=== PATIENT | male | born 1975 | race Caucasian/White ===

== ENCOUNTER 2020-07-13 05:30 | Observation (INO) | payer OTHER ==
[~2020-07-13] VITALS: Ht 182.9 cm; Wt 96.6 kg
[~2020-07-13 05:30] MED LIST: FLUOXETINE DR90 MG PO; IBUPROFEN400 MG PO; VYVANSE50 M1 PO
[2020-07-13] MEDS ORDERED: ANTIBIOTIC PO (06:00)
[2020-07-13] MEDS ORDERED: LIDOCAINE 1% W/EPINEPHRINE 20 ML VIAL ONE (06:41)
--- OUTSIDE RECORDS SUMMARY | 2020-07-13 09:12 | XMS REPORT | Continuity of Care Document ---
Author Author [facility] t Organization [facility] Address [address] [place] [address] Phone Unavailable Care Team Providers Care Crop And Soil Scientist Name Role Phone TRAVIS MARKS M.D. Attphys Unavailable VICENTE GUEVARA P.A. Attphys Unavailable Prudencio Almendarez Attphys Luis A Razo Attphys Margarito Monahan Attphys Prudencio Almendarez Admphys Problems Condition Name Condition Details Condition Category Status Onset Date Resolution Date Last Treatment Date Treating Clinician Comments Source ABNORMAL EKG, LEUKOCYTOSIS ABN ORMAL EKG, LEUKOCYTOSIS Active 10/30/2017 [facility] Diagnosis Active 2017-10-30 00:00:00 2017-11-01 14:16:00 [facility] MENIGITIS MENI GITIS Active 10/30/2017 [facility] Diagnosis Active 2017-10-30 00:00:00 2017-10-30 23:11:00 [facility] [place] POST ACCIDENT SCREENS POST ACCIDENT SCREENS Active 01/26/2016 [facility] Diagnosis Active 2016-01-26 22:00:00 2016-02-11 15:18:00 [facility] History of attention deficit disorder History of attention d eficit disorder Problem Resolved [facility] Ulcers of genital organ in male Ulcers of genital organ in male Pro blem Active [facility] Malaise and fatigue Malaise and fatigue Problem Active [facility]ache Head[facility] Screening for STD (sexually transmitted disease) Scree jocelyn for STD (sexually transmitted disease) Problem Active [facility] Lymphadenitis, acute Lymphadenitis, acute Problem Active [facility] Genital herpes simplex type 1 infection Genital herpes simpl ex type 1 infection Problem Active [facility] Dyslipidemia Dyslipidemia Problem Active [facility] RLQ abdominal tenderness RLQ abdominal tenderness Problem Active [facility] Constipation, acute Constipation, acute Problem Active [facility] Acute low back pain Acute low back pain Problem Active [facility] Strain of lumbar region, initial encounter Strain of l umbar region, initial encounter Problem Active [facility] Blood pressure elevated without history of HTN Blood p ressure elevated without history of HTN Problem Active [facility] Abnormal transaminases Abnormal transaminases Problem Active [facility] ADHD (attention deficit hyperactivity disorder), 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), inattentive type Problem Active [facility] Depressive disorder Depressive disorder Problem Active [facility] Abnormal electrocardiogram [ECG] [EKG] Abnormal electrocardiogram [ECG] [EKG] 11/05/2017 [facility] Problem 2017-11-05 02:49:08 [place] Bacterial ear infection (disorder) Bacterial ear infection (disorder) Resolved Problem 11/05/2017 [facility] Problem Resolved 2017-11-05 02:49:08 Mem orial Germán Abnormal ECG (finding) Abno rmal ECG (finding) Active Problem 11/05/2017 [facility] Problem Active 2017-11-05 02:49:08 [place] Influenza with pharyngitis (disorder) Influenza with pharyngitis (disorder) Active Problem 11/05/2017 [facility] Problem Active 2017-11-05 02:49:08 Saad rial Germán ABNORMAL ELECTROCARDIOGRAM [ECG] [EKG] ABNORMAL ELECTROCARDIOGRAM [ECG] [EKG] Active [facility] Diagnosis Active 2017-11-01 14:16:00 [facility] [place] ELEVATED WHITE BLOOD CELL COUNT, UNSPECI ELEVATED WHITE BLOOD CELL COUNT, UNSPECI Active [facility] Diagnosis Active 2017-11-01 14:16:00 [place] Allergies, Adverse Reactions, Alerts This patient has no known allergies or adverse reactions. Social History Social Habit Start Date Stop Date Quantity Comments Source Social History 2017-10-31 06:34:33 2017-10-31 06:34:33 [place] Smoking Status Start Date Stop Date Source Ex-smoker (finding) [facility] Medications Ordered Medication Name Filled Medication Name Start Date Stop Da te Current Medication? Ordering Clinician Indication Dosage Frequency Signature (SIG) Comments Components Source predniSONE 20 MG Oral Tablet predniSONE 20 MG Oral Tablet 2018-06-13 5 00:00:00 Yes VICENTE BENITEZR P.A. 2 PO QD x 3 days, then 1 PO QD x 4 days [facility] valACYclovir HCl - 1 GM Oral Tablet valACYclovir HCl - 1 GM Oral Tablet 2018-04-19 00:00:00 Yes VICENTE BENITEZR P.A. 1 Q12H TAKE 1 TABLET Every twelve hours x 7 days, then 1 PO QD [facility] cefdinir 300 MG Oral Capsule [Omnicef] 2017-11-02 17:29:00 Yes 300 mg = 1 cap, PO, Q12H, X 5 day, # 10 cap, 0 Refill(s), Pharmacy: [facility]/pharmacy #[id number] [facility] Azithromycin 2017-10-31 18:00:00 No Notes: (Same As: Zithromax IV) [facility] Docusate 2017-10-31 15:00:00 No Notes: (Same as: Colace) (Do Not Crush) [facility] Rocephin 2017-10-31 07:00:00 No Notes: (Same As: Rocephin). Use with 100 mL NS and infuse over 30 min MEDICATION WASTE Product Size: 2000 mg Product Wasted: ___ mg [facility] Saline Flush 0.9% 2017-10-31 06:16:00 No Notes: Same as: BD Posiflush Sterile [facility] NS + KCL 20mEq/L 1000ml (Premix) 1,000 mL 2017-10-31 06:16:00 No Notes: PREMIX IV - Do Not Alter WASTE: F/P - Sink; E - Municipal Trash Bin [facility] Morphine 2017-10-31 06:16:00 No Not es: (Same as:MORPhine Sulfate) [facility] Acetaminophen 2017-10-31 06:16:00 No Notes: Do not exceed 4 gm/day. (Same as: Tylenol) [facility] Ondansetron 2017-10-31 06:16:00 No Notes: (Same as: Zofran) MEDICATION WASTE Product Size: 4 mg Product Wasted: ___ mg [facility] Ibuprofen 2017-10-31 04:50:00 No Notes: (Same as: Motrin) "Do Not Crush" Take with food. [facility] [place] Acetaminophen 2017-10-30 23:29:00 No 975 mg, Route: PO, Drug form: TAB, ONCE, Dosing Weight 103.182, kg, Start date: 10/30/17 17:29:00 CLERK ANALYST, Stop date: 10/30/17 17:29:00 CLERK ANALYST [facility] harvey Calcium Chloride 0.0014 MEQ/ML / Potassi um Chloride 0.004 MEQ/ML / Sodium Chloride 0.103 MEQ/ML / Sodium Lactate 0.028 MEQ/ML Injectable Solution 2017-10-30 23:29:00 No 3,000 mL, 2000 ml/hr, Infuse Over: 1.5 hr, Route: IV, 3,000, Drug form: INJ, ONCE, Priority: STAT, Dosing Weight 103.182 kg, Start date: 10/30/17 17:29:00 CLERK ANALYST, Stop date: 10/30/17 17:29:00 CLERK ANALYST [facility] Saline Flush 0.9% 2017-10-30 23:29:00 No Notes: Same as: BD Posiflush Sterile [facility] [place] Promethazine HCl and Codeine Phosphate oral syrup 2017-10-23 20:27:00 Yes 5 ml, PO, Q4H, PRN for cough, X 10 day, # 180 m L, 0 Refill(s) [facility] Oseltamivir 75 MG Oral Capsule [Tamiflu] 2017-10-23 20:27:00 Yes 75 mg, PO, Q12H, X 5 day, # 10 cap, 0 Refill(s), Pharmacy: [facility]acy #[id number] Promethazine DM oral syrup 2017-10-19 18:16:00 Yes 5 mL, PO, Q6H, PRN for cough, X 6 day, # 120 mL, 0 Refill(s) [place] amoxicillin 875 mg oral tablet 2017-10-19 18:16:00 Yes 875 mg = 1 tab, PO, BID, X 10 day, # 20 tab, 0 Refill(s) [facility] [place] Fluoxetine 20 MG Oral Capsule [Prozac] 2017-10-18 18:48:00 Yes 20 mg = 1 cap, PO, Daily, # 30 cap, 0 Refill(s) [facility] [place] lisdexamfetamine dimesylate 50 MG Oral Capsule [Vyvanse] 2017-10-18 18:48:00 Yes 50 mg = 1 cap, PO, QAM, # 30 cap , 0 Refill(s) [place] Vyvanse 50 MG Oral Capsule Vyvanse 50 MG Oral Capsule 2017-04-17 00:0 0:00 Yes TRAVIS MARKS M.D. Take one cap daily. [facility] FLUoxetine HCl - 20 MG Oral Capsule FLUoxetine HCl - 20 MG O ral Capsule 2017-04-17 00:00:00 Yes TRAVIS MARKS M.D. Take on e cap daily. [facility] Vital Signs Vital Name Observation Time Observation Value Comments Source Systolic blood pressure 2019-12-16 17:34:00 115 mm[Hg] Loca tion: RUE; Position: Sitting [facility] Diastolic blood pressure 2019-12-16 17:34:00 77 mm[Hg] Loc ation: RUE; Position: Sitting [facility] Body height 2019-12-16 17:34:00 72 [in_us] [facility] Weight 2019-12-16 17:34:00 236.5 [lb_av] [facility] Body mass index (BMI) [Ratio] 2019-12-16 17:34:00 32.08 kg/m2 [facility] Body temperature 2019-12-16 17:34:00 97.7 [degF] Method: Tympanic [facility] Heart Rate 2019-12-16 17:34:00 74 /min Quality: Normal [facility] Respiratory rate 2019-12-16 17:34:00 18 /min Quality: Normal [facility] O2 SAT 2019-12-16 17:34:00 98 % Source: RA [facility] BP Systolic 2019-08-20 13:39:00 129 mm[Hg] Location: STEVEN Positi on: Sitting [facility] BP Diastolic 2019-08-20 13:39:00 81 mm[Hg] Location: STEVEN Positi on: Sitting [facility] Height 2019-08-20 13:39:00 72 [in_us] [facility] Weight 2019-08-20 13:39:00 228.125 [lb_av] [facility] Body Mass Index Calculated 2019-08-20 13:39:00 30.94 kg/m2 [facility] Heart Rate 2019-08-20 13:39:00 97 /min [facility] O2 SAT 2019-08-20 13:39:00 99 % [facility] BP Systolic 2019-01-15 17:40:00 131 mm[Hg] Location: RUE; Positi on: Sitting [facility] BP Diastolic 2019-01-15 17:40:00 90 mm[Hg] Location: RUE; Positi on: Sitting [facility] Weight 2019-01-15 17:40:00 104.32 kg [facility] Body Mass Index Calculated 2019-01-15 17:40:00 31.19 kg/m2 [facility] Heart Rate 2019-01-15 17:40:00 78 /min [facility] O2 SAT 2019-01-15 17:40:00 98 % [facility] BP Systolic 2018-07-09 13:31:00 145 mm[Hg] [facility] BP Diastolic 2018-07-09 13:31:00 91 mm[Hg] [facility] Height 2018-07-09 13:31:00 72 [in_us] [facility] Weight 2018-07-09 13:31:00 225.5 [lb_av] [facility] Body Mass Index Calculated 2018-07-09 13:31:00 30.58 kg/m2 [facility] Temperature 2018-07-09 13:31:00 97.2 [degF] [facility] Heart Rate 2018-07-09 13:31:00 94 /min [facility] Respiration Rate 2018-07-09 13:31:00 18 /min [facility] O2 SAT 2018-07-09 13:31:00 95 % [facility] BP Systolic 2018-06-27 10:40:00 127 mm[Hg] Location: LUE; Positi on: Sitting [facility] BP Diastolic 2018-06-27 10:40:00 92 mm[Hg] Location: LUE; Positi on: Sitting [facility] Height 2018-06-27 10:40:00 72 [in_us] [facility] Weight 2018-06-27 10:40:00 221.375 [lb_av] [facility] Body Mass Index Calculated 2018-06-27 10:40:00 30.02 kg/m2 [facility] Temperature 2018-06-27 10:40:00 98.2 [degF] Method: Temporal [facility] Respiration Rate 2018-06-27 10:40:00 16 /min [facility] Heart Rate 2018-06-27 10:40:00 67 /min [facility] BP Systolic 2018-05-04 10:06:00 118 mm[Hg] Location: LUIS ENRIQUE; Positi on: Sitting [facility] BP Diastolic 2018-05-04 10:06:00 85 mm[Hg] Location: LUIS ENRIQUE; Positi on: Sitting [facility] Height 2018-05-04 10:06:00 72 [in_us] [facility] Weight 2018-05-04 10:06:00 219.5 [lb_av] [facility] Body Mass Index Calculated 2018-05-04 10:06:00 29.77 kg/m2 [facility] Temperature 2018-05-04 10:06:00 97.6 [degF] Method: Temporal [facility] Heart Rate 2018-05-04 10:06:00 83 /min [facility] Respiration Rate 2018-05-04 10:06:00 16 /min [facility] BP Systolic 2018-04-19 12:15:00 118 mm[Hg] Location: LUIS ENRIQUE; Positi on: Sitting [facility] BP Diastolic 2018-04-19 12:15:00 86 mm[Hg] Location: LUIS ENRIQUE; Positi on: Sitting [facility] Height 2018-04-19 12:15:00 72 [in_us] [facility] Weight 2018-04-19 12:15:00 222 [lb_av] [facility] Body Mass Index Calculated 2018-04-19 12:15:00 30.11 kg/m2 [facility] Temperature 2018-04-19 12:15:00 96.5 [degF] Method: Temporal [facility] Respiration Rate 2018-04-19 12:15:00 16 /min [facility] Heart Rate 2018-04-19 12:15:00 85 /min [facility] BP Systolic 2018-02-13 10:22:00 125 mm[Hg] Location: STEVEN Positi on: Sitting [facility] BP Diastolic 2018-02-13 10:22:00 89 mm[Hg] Location: LUIS ENRIQUE; Positi on: Sitting [facility] Height 2018-02-13 10:22:00 72 [in_us] [facility] Weight 2018-02-13 10:22:00 223.375 [lb_av] [facility] Body Mass Index Calculated 2018-02-13 10:22:00 30.3 kg/m2 [facility] Temperature 2018-02-13 10:22:00 98.3 [degF] Method: Tympanic [facility] Heart Rate 2018-02-13 10:22:00 91 /min [facility] O2 SAT 2018-02-13 10:22:00 98 % Source: RA [facility] Systolic (mm Hg) 2017-11-02 17:43:00 [facility] [place] Diastolic (mm Hg) 2017-11-02 17:43:00 [facility] [place] Respitory Rate 2017-11-02 17:43:00 Memori al [facility] Temperature Oral (F) 2017-11-02 17:43:00 98.5 F [facility] Heart Rate 2017-11-02 17:43:00 [facility] Heart Rate 2017-11-02 14:09:00 [facility] Temperature Oral (F) 2017-11-02 14:09:00 97.8 F [facility] Systolic (mm Hg) 2017-11-02 14:09:00 Saad rial [facility] Diastolic (mm Hg) 2017-11-02 14:09:00 [facility] [place] Respitory Rate 2017-11-02 14:09:00 Memori al [facility] Systolic (mm Hg) 2017-11-02 10:09:00 Saad rial [place] Diastolic (mm Hg) 2017-11-02 10:09:00 [facility] [place] Respitory Rate 2017-11-02 10:09:00 [facility] [place] Temperature Oral (F) 2017-11-02 10:09:00 98.2 F [facility] Heart Rate 2017-11-02 10:09:00 [facility] BMI Calculated 2017-10-31 07:31:00 [facility] Weight 2017-10-31 07:31:00 [facility] [place] Height 2017-10-31 07:31:00 187.96 cm [facility] Weight 2017-10-30 23:24:00 [facility] BMI Calculated 2017-10-30 23:24:00 Memori al [facility] Height 2017-10-30 23:24:00 182.88 cm [facility] Heart Rate 2017-10-30 22:43:00 [facility] Systolic (mm Hg) 2017-10-30 22:43:00 Saad rial [place] Diastolic (mm Hg) 2017-10-30 22:43:00 Mem orial [facility] Temperature Oral (F) 2017-10-30 22:43:00 99.9 F [facility] BMI Calculated 2017-10-23 20:12:00 [facility] [place] Height 2017-10-23 20:12:00 182.88 cm [facility] Weight 2017-10-23 20:12:00 [facility] Systolic (mm Hg) 2017-10-23 20:12:00 Saad [facility] [place] Diastolic (mm Hg) 2017-10-23 20:12:00 Mem orial [facility] Heart Rate 2017-10-23 20:12:00 [facility] Respitory Rate 2017-10-23 20:12:00 Memori al [facility] BP Systolic 2017-10-23 11:16:00 115 mm[Hg] [facility] BP Diastolic 2017-10-23 11:16:00 80 mm[Hg] [facility] Weight 2017-10-23 11:16:00 221.25 [lb_av] [facility] Body Mass Index Calculated 2017-10-23 11:16:00 30.01 kg/m2 [facility] Temperature 2017-10-23 11:16:00 98.6 [degF] [facility] Heart Rate 2017-10-23 11:16:00 87 /min [facility] Respiration Rate 2017-10-23 11:16:00 18 /min [facility] O2 SAT 2017-10-23 11:16:00 98 % [facility] Temperature Oral (F) 2017-10-19 17:41:00 98.9 F [facility] Heart Rate 2017-10-19 17:41:00 [facility] Systolic (mm Hg) 2017-10-19 17:41:00 Saad carmina Germ[facility] Diastolic (mm Hg) 2017-10-19 17:41:00 Mem orial [place] Procedures Procedure Date / Time Performed Performing Clinician Sourc e [[facility]] HEPATIC FUNCTION PANEL 2018-04-23 00:00:00 [facility] [QH] HERPES SIMPLEX VIRUS ANTIBODY IGM WITH REFLEX TO TITER 2018-04-19 00:00:00 [facility] [Q] HSV 1/2 IGG, HERPESELECT TYPE SPECIFIC AB (REFL) 2018-04-19 00:00:00 [facility] [Q] CHLAMYDIA/N. GONORRHOEAE DNA, SDA 2018-04-19 00:00:00 [facility] [QH] HIV AB, HIV 1/2, EIA, WITH REFLEXES 2018-04-19 00:00:00 [facility] [QL] RPR (DX) W/REFL TITER AND CONFIRMATORY TESTING 2018-04-19 0 0:00:00 [facility] [QL] HEPATITIS PANEL 2018-04-19 00:00:00 [facility] [QL] CBC (INCLUDES DIFF/PLT) 2018-04-19 00:00:00 [facility] [[facility]] CMP W/EGFR 2018-04-19 00:00:00 [facility] [QL] LIPID PANEL 2018-04-19 00:00:00 [facility] [QL] TSH, 3RD GENERATION W/REFLEX TO FT4 2018-04-19 00:00:00 [facility] [QL] URINALYSIS, COMPLETE W/REFLEX TO CULTURE 2018-04-19 00:00: 00 [facility] [QL] CULTURE, HERPES SIMPLEX VIRUS WITH TYPING 2018-04-19 00:00: 00 [facility] History of Back surgery [facility] Cervical spinal fusion [facility] Plan of Care Planned Activity Planned Date Details Comments Source Diagnostic Test Pending 2018-05-23 00:00:00 [[facility]] HEPATIC FU NCTION PANEL [code = [[facility]] HEPATIC FUNCTION PANEL] [facility] Encounters Start Date/Time End Date/Time Encounter Type Admission Type Attendi [facility] Care Department Encounter ID Source 2020-05-12 18:30:2020-05-12 18:30:00 Appointment; TRAVIS MARKS M.D. MENDEZ, RUBEN, M.D. [facility] [id number] [facility] 2020-05-12 18:30:00 2020-05-12 18:30:00 Appointment; TRAVIS MARKS M.D. MENDEZ, RUBEN, M.D. UTP [facility] [id number] [facility] 2020-04-20 18:30:00 2020-04-20 18:30:00 Appointment; TRAVIS MARKS M.D. MENDEZ, RUBEN, M.D. [facility] [id number] [facility] 2020-04-20 18:30:00 2020-04-20 18:30:00 Appointment; TRAVIS MARKS M.D. MENDEZ, RUBEN, M.D. [facility] [id number] [facility] 2019-12-16 18:00:00 2019-12-16 18:00:00 Appointment; TRAVIS MARKS M.D. MENDEZ, RUBEN, M.D. [facility] Psychiatry Outpatient Clinic - [facility] [id number] [facility] 2019-08-20 13:30:00 2019-08-20 13:30:00 Appointment; TRAVIS MARKS M.D. MENDEZ, RUBEN, M.D. [facility] Psych[facility]ry Outpatient [facility] - [facility] [id number] [facility] 2019-05-21 18:00:00 2019-05-21 18:00:00 Appointment; TRAVIS MARKS M.D. MENDEZ, RUBEN, M.D. [facility] [id number] [facility] 2019-01-15 17:30:00 2019-01-15 17:30:00 Appointment; TRAVIS MARKS M.D. MENDEZ, RUBEN, M.D. [facility] [address] [id number] [facility] 2018-07-09 13:30:00 2018-07-09 13:30:00 Appointment; TRAVIS MARKS M.D. MENDEZ, RUBEN, M.D. [facility] Psychiatry [id number] [facility] 2018-06-27 11:00:00 2018-06-27 11:00:00 Appointment; KLEVER GUEVARA P.A. SPOONER, JOSEPH, P.A. [facility] [address] [id number] [facility] 2018-06-18 10:30:00 2018-06-18 10:30:00 Appointment; TRAVIS MARKS M.D. MENDEZ, RUBEN, M.D. [facility] [id number] [facility] 2018-05-04 10:15:00 2018-05-04 10:15:00 Appointment; KLEVER GUEVARA P.A. SPOONER, JOSEPH, P.A. [facility] [address] [id number] [facility] 2018-04-19 12:30:00 2018-04-19 12:30:00 Appointment; KLEVER GUEVARA P.A. SPOONER, JOSEPH, P.A. [facility] [id number] [facility] 2018-02-13 10:30:00 2018-02-13 10:30:00 Appointment; TRAVIS MARKS M.D. MENDEZ, RUBEN, M.D. [facility] Psychiatry [id number] [facility] 2017-10-30 17:19:00 2017-11-02 13:00:00 Outpatient Abby Almendarez [facility] [id number] 2017-10-30 16:00:00 2017-10-30 23:59:59 Outpatient Luis A Razo [facility] [id number] 2017-10-23 14:00:00 2017-10-23 23:59:59 Outpatient Wilfred Gonzalez [facility] [id number] 2017-10-23 11:00:00 2017-10-23 11:00:00 Appointment; TRAVIS MARKS M.D. MENDEZ, RUBEN, M.D. [facility] Psychiatry [id number] [facility] 2017-10-19 11:00:00 2017-10-19 23:59:59 Outpatient Wilfred Gonzalez [facility] [id number] 2017-10-18 12:00:00 2017-10-18 23:59:59 Outpatient Luis A Razo [facility] [id number] 2017-07-10 16:30:00 2017-07-10 16:30:00 Appointment; TRAVIS MARKS M.D. MENDEZ, RUBEN, M.D. [facility] UTP [id number] [facility] 2017-04-17 10:30:00 2017-04-17 10:30:00 Appointment; TRAVIS MARKS M.D. MENDEZ, RUBEN, M.D. [facility] UTP [id number] [facility] Results Test Description Test Time Test Comments Results Result Comments Source [[facility]] LIPID PANEL 2018-04-19 13:40:00 Test Item CHOLESTEROL, TOTAL; Normal (test code = 2093-3) 160 mg/dl <200 N HDL CHOLESTEROL; Below Low Threshold (test code = 2085-9) 38 mg/dl >40 TRIGLYCERIDES; Above High Threshold (test code = 2571-8) 373 mg/dl <150 LDL-CHOLESTEROL; Normal (test code = 48050-0) 77 {MG/DL JAMIE} N Reference range: <100 Desirable range <100 mg/dL for primary prevention; <70 mg/dL for patients with CHD or diabetic patients with > or = 2 CHD risk factors. LDL-C is now calculated using the Julio-Aggarwal calculation, which is a validated novel method providing better accuracy than the Friedewald equation in the estimation of LDL-C. Julio SS et al. DESHAWN. 2013;310(19): 4803-6809 (http ://education.Beat.no.com/faq/TWJ609) CHOL/HDLC RATIO (test code = CHOL/HDLC RATIO) 4.2 {CALC} <5.0 N NON HDL CHOLESTEROL (test code = NON HDL CHOLESTEROL) 122 {MG/DL C AL} <130 N For patients with diabetes plus 1 major ASCVD risk factor, treating to a non-HDL-C goal of <100 mg/dL (LDL-C of <70 mg/dL) is considered a therapeutic option. [facility]] HEPATITIS [id number] 13:40:00* Test Item Value Reference Range Interpretation Comments HEPATITIS A AB, TOTAL (test code = HEPATITIS A AB, TOTAL) REACTI VE NON-REACTIVE A HEPATITIS B SURFACE ANTIBODY QL; Normal (test code = 11633-6 ) NON-REACTIVE NON-REACTIVE N HEPATITIS B SURFACE ANTIGEN; Normal (test code = 5195-3) NON -REACTIVE NON-REACTIVE N HEPATITIS B CORE AB TOTAL; Normal (test code = 89541-7) NON- REACTIVE NON-REACTIVE N HEPATITIS C ANTIBODY; Normal (test code = 44119-2) NON-REACTIVE NON -REACTIVE N SIGNAL TO CUT-OFF (test code = SIGNAL TO CUT-OFF) 0.01 <1.0 0 N [facility][Q] HIV-1/2 Antigen and Antibodies, Fourth Generation, with [id number] 13:40:00* Test Item Value Reference Range Interpretation Comments HIV AG/AB, 4TH GEN; Normal (test code = 70972-9) NON-REACTIVE NON-R EACTIVE N HIV-1 antigen and HIV-1/HIV-2 antibodies were notdetected. There is no laboratory evidence of HIVinfection. PLEASE NOTE: This information has been disclosed toyou from records whose confidentiality may beprotected by state law. If your state requires suchprotection, then the state law prohibits you frommaking any further disclosure of the informationwithout the specific written consent of the personto whom it pertains, or as otherwise permitted by law.A general authorization for the release of medical orother information is NOT sufficient for this purpose. For additional information please refer t [email or web address](This link is being provided for informational/educational purposes only.) The performance of this assay has not been clinicallyvalidated in patients less than 2 years old. [facility]] CMP W/[id number] 13:40:00* Test Item Value Reference Range Interpretation Comments GLUCOSE; Normal (test code = 1547-9) 84 mg/dl 65-139 N Non-fasting reference interval UREA NITROGEN (BUN) (test code = UREA NITROGEN (BUN)) 10 mg/dl 7-25 N CREATININE (test code = CREATININE) 0.79 mg/dl 0.60-1.35 N eGFR NON- (test code = eGFR NON-KAIT N TONGAN) 111 {ML/MIN/1.7} > OR = 60 N eGFR (test code = eGFR ) 12 8 {ML/MIN/1.7} > OR = 60 N BUN/CREATININE RATIO (test code = BUN/CREATININE RATIO) NOT APPLICA BLE 6-22 SODIUM (test code = SODIUM) 139 mmol/L 135-146 N POTASSIUM (test code = POTASSIUM) 4.3 mmol/L 3.5-5.3 N CHLORIDE (test code = CHLORIDE) 103 mmol/L 98-110 N CARBON DIOXIDE (test code = CARBON DIOXIDE) 25 mmol/L 20-31 N CALCIUM (test code = CALCIUM) 8.9 mg/dl 8.6-10.3 N PROTEIN, TOTAL (test code = PROTEIN, TOTAL) 7.2 g/dl 6.1-8.1 N ALBUMIN (test code = ALBUMIN) 4.1 g/dl 3.6-5.1 N GLOBULIN (test code = GLOBULIN) 3.1 {G/DL CALC} 1.9-3.7 N ALBUMIN/GLOBULIN RATIO (test code = ALBUMIN/GLOBULIN RATIO) 1.3 {CALC} 1.0-2.5 N BILIRUBIN, TOTAL; Normal (test code = 02402-3) 0.7 mg/dl 0.2-1.2 N ALKALINE PHSPHATASE (test code = ALKALINE PHSPHATASE) 105 u/l 40-115 N AST; Above High Threshold (test code = 1916-6) 46 u/l 10-40 ALT; Above High Threshold (test code = 1742-6) 100 u/l 9-46 [facility]] URINALYSIS, COMPLETE W/REFLEX TO CULTURE 2018-04-19 13:40:00* Test Item Value Reference Range Interpretation Comments COLOR; Normal (test code = 5778-6) DARK YELLOW YELLOW N APPEARANCE (test code = APPEARANCE) CLEAR CLEAR N SPECIFIC GRAVITY; Normal (test code = 2965-2) 1.025 1.001-1. 035 N PH; Normal (test code = 2756-5) 6.0 5.0-8.0 N GLUCOSE; Normal (test code = 1547-9) NEGATIVE NEGATIVE N BILIRUBIN; Normal (test code = 05643-5) NEGATIVE NEGATIVE N KETONES; Normal (test code = 39555-5) NEGATIVE NEGATIVE N OCCULT BLOOD; Normal (test code = 03973-2) NEGATIVE NEGATIVE N PROTEIN; Normal (test code = 03346-6) NEGATIVE NEGATIVE N NITRITE (test code = NITRITE) NEGATIVE NEGATIVE N LEUKOCYTE ESTERASE (test code = LEUKOCYTE ESTERASE) NEGATIVE NE GATIVE N WBC; Normal (test code = 6690-2) NONE SEEN < OR = 5 N RBC; Normal (test code = 789-8) NONE SEEN < OR = 2 N SQUAMOUS EPITHELIAL CELLS; Normal (test code = 35004-3) NONE SEEN < OR = 5 N BACTERIA; Normal (test code = 630-4) NONE SEEN NONE SEEN N HYALINE CAST; Normal (test code = 10595-0) NONE SEEN NONE SEEN N [facility]] CBC (INCLUDES DIFF/PLT)2018-04-19 13:40:00* Test Item Value Reference Range Interpretation Comments WHITE BLOOD CELL COUNT (test code = WHITE BLOOD CELL COUNT) 6.3 {Thousand/u} 3.8-10.8 N RED BLOOD CELL COUNT (test code = RED BLOOD CELL COUNT) 4.68 {Million/uL} 4.20-5.80 N HEMOGLOBIN; Normal (test code = 36458-9) 14.3 g/dl 13.2-17.1 N HEMATOCRIT; Normal (test code = 4544-3) 41.0 % 38.5-50.0 N MCV; Normal (test code = 787-2) 87.6 fL 80.0-100.0 N MCHC; Normal (test code = 96111-3) 34.9 g/dl 32.0-36.0 N RDW; Normal (test code = 788-0) 12.4 % 11.0-15.0 N PLATELET COUNT; Normal (test code = 777-3) 165 {Thousand/u} 140-400 N MPV; Above High Threshold (test code = 90574-0) 13.6 fL 7.5-12 .5 ABSOLUTE NEUTROPHILS (test code = ABSOLUTE NEUTROPHILS) 3131 {cells/uL} 4732-9427 N ABSOLUTE LYMPHOCYTES (test code = ABSOLUTE LYMPHOCYTES) 1978 {cells/uL} 850-3900 N ABSOLUTE MONOCYTES (test code = ABSOLUTE MONOCYTES) 1140 {cells/uL} 200-950 ABSOLUTE EOSINOPHILS (test code = ABSOLUTE EOSINOPHILS) 32 {cells/u L} 15-500 N ABSOLUTE BASOPHILS (test code = ABSOLUTE BASOPHILS) 19 {cells/uL} 0 -200 N NEUTROPHILS (test code = NEUTROPHILS) 49.7 % N LYMPHOCYTES (test code = LYMPHOCYTES) 31.4 % N MONOCYTES; Normal (test code = 86647-4) 18.1 % N EOSINOPHILS; Normal (test code = 88312-9) 0.5 % N BASOPHILS; Normal (test code = 76840-0) 0.3 % N [facility][Q] HSV 1/2 IGG, HERPESELECT TYPE SPECIFIC AB (REFL)2018-04-19 13:40:00* Test Item Value Reference Range Interpretation Comments HSV 1 IGG TYPE SPECIFIC AB (test code = HSV 1 IGG TYPE SPECIFIC AB) <0.90 N HSV 2 IGG TYPE SPECIFIC AB (test code = HSV 2 IGG TYPE SPECIFIC AB) <0.90 N Index Interpretation ----- <0.90 Negative 0.90-1.09 Equivocal >1.09 Positive This assay utilizes recombinant type-specific antigensto differentiate HSV-1 from HSV-2 infections. Apositive result cannot distinguish between recent andpast infection. If recent HSV infection is suspectedbut the results are negative or equivocal, the assayshould be repeated in 4-6 weeks. The performancecharacteristics of the assay have not been establishedfor pediatric populations, immunocompromised patients,or screening. [facility][Q] REFLEXIVE URINE [id number] 13:40:00* Test Item Value Reference Range Interpretation Comments REFLEXIVE URINE CULTURE (test code = REFLEXIVE URINE C ULTURE) NO CULTURE INDICATED [facility]] TSH, 3RD GENERATION W/REFLEX TO FT4 2018-04-19 13:40:00* Test Item Value Reference Range Interpretation Comments TSH, 3RD GENERATION W/REFLEX TO FT4 (wilbur t code = TSH, 3RD GENERATION W/REFLEX TO FT4) 2.48 {MIU/L} 0.40-4.50 N [facility][Q] HSV 1/2 AB (IGM), IFA W/RFL TO [id number] 13:40:00* Test Item Value Reference Range Interpretation Comments HSV 1 IGM SCREEN (test code = HSV 1 IGM SCREEN) NEGATIVE HSV 2 IGM SCREEN (test code = HSV 2 IGM SCREEN) NEGATIVE REFERENCE RANGE: NEGATIVE The IFA procedure for measuring IgM antibodies to HSV 1and HSV 2 detects both type-common and type- specificHSV antibodies. Thus, IgM reactivity to both HSV 1and HSV 2 may represent crossreactive HSV antibodiesrather than exposure to both HSV 1 and HSV 2. This test was developed and its analytical performancecharacteristics have been determined by [facility]. It has not been cleared or approvedby FDA. This assay has been validated pursuant to theCLIA regulations and is used for clinical purposes. [facility][Q] CHLAMYDIA/N. GONORRHOEAE RNA, [id number] 13:40:00* Test Item Value Reference Range Interpretation Comments CHLAMYDIA TRACHOMATIS RNA, TMA; Normal (test code = 45564-5) NOT DETECTED NOT DETECTED N NIESSERIA GONORRHOEAE RNA,M TMA; Normal (test code = 00604-2 ) NOT DETECTED NOT DETECTED N [facility][QL] RPR (DX) W/REFL TITER AND CONFIRMATORY [id number] 13:40:00* Test Item Value Reference Range Interpretation Comments RPR (DX) W/REFL TITER AND CONFIRMATORY T ESTING (test code = RPR (DX) W/REFL TITER AND CONFIRMATORY TESTING) NON-REACTIVE NON-REACTIVE N [facility][QL] CULTURE, HERPES SIMPLEX VIRUS WITH TYPING 2018-04-19 12:43:00* Test Item Value Reference Range Interpretation Comments HSV CULTURE (test code = HSV CULTURE) See Comment A HERPES SIMPLEX VIRUS CULTURE W/RFL TO TYPING MICRO NUMBER: [id number] TEST STATUS: FINAL SPECIMEN SOURCE: NOT GIVEN SPECIMEN QUALITY: ADEQUATE HSV CULTURE: Isolated HSV TYPE 2: Not isolated HSV TYPE 1: Isolated [facility]iciansCHEM XHISF7299-72-07 11:22:70133Mjviesyx Germán CHEM IOKKE2185-83-95 11:22:000.74[facility] LGGVF9233-44-99 11:22:00 140[facility]annCHEM JULEN1476-48-64 11:22:0014[facility]annCHEM PANEL 2017-11-02 11:22:0096[facility]annCHEM XSTKO1872-64-58 11:22:0098[facility]annCHEM HSCWG6718-39-55 11:22:0020[facility]annCHEM WCEMQ9159-54-77 11:22:0086[facility]annCHEM RUCMO7280-38-21 11:22:000.7[facility]annCHEM PWAXZ1634-77-96 11:22:004.3[facility]annCHEM OBYTF7382-10-53 11:22:002.9 [facility]CHE[facility] AMMTC1715-83-34 11:22:007.2[facility]annCHEM PANEL 2017-11-02 11:22:0019[facility]annCHEM GGQAR8707-11-25 11:22:008.9[facility]annCHEM BFFFS3424-45-13 11:22:92041Tzkzybqf HermannCHEM HEXVO4273-20-17 11:22:0012.2[facility]annCHEM SDCMT3602-23-42 11:22:0024[facility]annCHEM MGQMA6550-68-35 11:22:004.2[facility]annCHEM WLOGJ2792-67-44 11:22:000.5 [facility] NtarmkmZMUSVSOVZA9834-10-34 11:22:000.1[facility]annHEMATOLOGY 2017-11-02 11:22:001.0[facility] MszcnesYZLTKQZOLG4719-94-67 11:22:001.9[facility] FcaczpuAQFJMACRCO2887-17-26 11:22:0027.5[facility] IsgwzexBRHPRAXSGS4839-91-26 11:22:0056.5[facility] EuampzxDELKSQLTJA3050-79-08 11:22:003.9[facility] WUPMSSEYCH8173-05-07 11:22:000.5[facility] YdhwaqdVNDQLJLEJR0520-91-09 11:22:001.6 [facility] DxyjracWQDZLIBEHM0714-47-54 11:22:0013.9[facility]annHEMATOLOGY 2017-11-02 11:22:81188Kgirwxva GjodknsSDEONQSVFH1183-31-02 11:22:0010.1[facility] UxfxzawQXAZMPYRDK5852-39-99 11:22:0034.9[facility] GtsygevKRJHTZCDXT6466-47-90 11:22:0012.7[facility] HiocxutYFRBLOQMNI0328-82-28 11:22:004.39[facility] WQCTVWWBWR6813-89-42 11:22:0013.6[facility] YcyzclsZCLXVZRIGJ6239-06-30 11:22:00 88.3[facility] LzqolbcUWKSKUDCPT8584-31-23 11:22:00* Test Item Value Reference Range Interpretation Comments MCH (test code = MCH) 30.9 pg 27.0-31.0 [facility] MqsfuvqZHNQRHZKGQ6844-40-30 11:22:0038.8[facility]annHEMATOLOGY 2017-11-02 11:22:006.9[facility]annCHEM RXBZF2440-15-88 10:56:61036Xtoydnhu HermannCHEM JSHNL0148-28-76 10:56:006.6[facility]annCHEM JNTFS4005-73-77 10:56:0037[facility]annCHEM XKJRY0529-98-11 10:56:002.6[facility]annCHEM RHOJO1348-38-35 10:56:67620Swuxljyv HermannCHEM TWICQ5676-29-73 10:56:008.2 [facility]annCHE[facility] FBFJZ4763-23-08 10:56:0023[facility]annCHEM PANEL 2017-11-01 10:56:001.4[facility]annCHEM FRWLL2340-97-16 10:56:0099[facility]annCHEM GMMBP8046-40-30 10:56:003.9[facility]annCHEM FXXKT4664-51-90 10:56:09492Iiunmqfm HermannCHEM VLNZJ0073-85-54 10:56:46779Ermhsbuz HermannCHEM EAPFW5585-47-23 10:56:000.80[facility]annCHEM CKCAH6588-47-81 10:56:0012 [facility]annCHE[facility] RTZSN1309-02-05 10:56:36375Nvxlkewq HermannCHEM PANEL 2017-11-01 10:56:004.0[facility]annCHEM AMTSN9872-90-95 10:56:000.6[facility]annCHEM MPMLO6618-80-85 10:56:0015[facility]annCHEM WQXHL1117-49-08 10:56:0013.9[facility]annCHEM OQSCY3638-49-53 10:56:000.25[facility] IIELHZOLRJ4208-10-06 10:56:001.6[facility] OylzwlpVXMAXOVNQE7851-85-45 10:56:002.1 [facility] WepoezgDSQLQDSDGW7329-30-05 10:56:008.3[facility] HermannHEMATOLOGY 2017-11-01 10:56:000.4[facility] UnqubgmYPVZEAKLTO0680-91-61 10:56:000.1[facility] EgsfyehQSRACCVUYR3356-24-18 10:56:0017.2[facility] IzyydmtLIYDFJIBDW6528-51-60 10:56:000.3[facility] SbmebzpYFVFQRUDZZ0796-20-37 10:56:0013.0[facility] THMPIZRHOS8819-45-53 10:56:0069.1[facility] FywrfnqXVPTKMJHPT6529-20-98 10:56:00 3.97[facility] LwicsleKTGPHPDEKF7975-22-14 10:56:0012.1[facility] HermannHEMATOLOGY 2017-11-01 10:56:0088.4[facility] IdpzyneCFXKWMJLBX1236-26-64 10:56:00* Test Item Value Reference Range Interpretation Comments MCH (test code = MCH) 30.9 pg 27.0-31.0 [facility] GbhuztaLSMOOYEEZF4972-05-39 10:56:0012.3[facility] HermannHEMATOLOGY 2017-11-01 10:56:0012.4[facility] NanuhcwQIDMJBOIDH1057-52-15 10:56:0035.1[facility] InkgsbnCOSODXNOJV2258-31-11 10:56:0035.0[facility] IoiahcsDNJEKCFDIJ0806-11-94 10:56:0010.5[facility] QpjmdzzNSAPDAYMAS9337-95-17 10:56:25779Vxfluqhj Ayr FXSRSANRAQ0613-97-17 10:56:00Negative *NA*(11/01/17 4:56 AM)[facility] NBETOUOYQZ1193-51-23 10:56:00Negative *NA*(11/01/17 4:56 AM)[facility] QMMNUWYIQN0674-90-91 10:56:00Negative *NA*(11/01/17 4:56 AM)[facility] ONTBAAQTKR4917-42-79 10:56:00Negative *NA*(11/01/17 4:56 AM)[facility] MSMDHDPPRR9805-35-11 10:56:00Negative *NA*(11/01/17 4:56 AM)[facility] CARDIAC SITYMWA7498-70-34 11:23:00<0.02[facility] HermannCARDIAC JONZUFE5102-59-92 11:23:48105Lrljbksf HermannCARDIAC DTDSTEW7018-92-86 11:23:001.0[facility]annCARDIAC JDAQDYU4216-34-90 11:23:001.3[facility]annCARDIAC ENZYMES 2017-10-31 08:25:000.8[facility]annCARDIAC YTBQEQM4634-38-00 08:25:001.2 [facility]annCARDIAC UPHYBVP4164-62-52 08:25:00<0.02[facility]annCARDIAC PRSXXOT4766-33-59 08:25:88452Aotcrxjc HermannCHEM GYQGW7576-04-18 08:25:001.8 [facility]annCHEM ZORTU2426-28-11 08:25:95393Bukzchkt HermannCHEM PANEL 2017-10-31 08:25:0061[facility] HermannCHEM KHAFL0005-64-12 08:25:79547Qzwdbxky HermannCHEM UWCNT6712-07-45 08:25:001.3[facility]annCHEM USXMG5482-86-60 08:25:006.8[facility]annCHEM DWHZK9300-91-68 08:25:003.2[facility]annCHEM KCPYB5114-44-37 08:25:01993Dkdtmapy HermannCHEM JGPWW2226-10-68 08:25:0024 [facility]annCHEM WUNSW4761-93-01 08:25:008.8[facility] HermannCHEM PANEL 2017-10-31 08:25:000.89[facility] HermannCHEM IKSXT4786-10-85 08:25:79447Wmgjdvrb HermannCHEM BMXVM9961-99-51 08:25:49407Juuskkli HermannCHEM HMZLH5350-82-49 08:25:003.6[facility]annCHEM MWIMV3038-28-42 08:25:71441Jzzmqgyo HermannCHEM YIIBJ1802-26-10 08:25:0013[facility] HermannCHEM PVUXV5104-03-16 08:25:0014.6 [facility]annCHEM KDVLP7936-86-18 08:25:0015[facility] HermannCHEM PANEL 2017-10-31 08:25:003.6[facility] HermannCHEM RGAMB7601-47-46 08:25:000.9[facility] ZdynzriGCBZDTHQMK7610-86-64 08:25:002.7[facility] AnmftruXDMHWRWLJG6415-72-96 08:25:001.4[facility] ZsmxdqmJYKRAHHUTG5025-75-03 08:25:006.4[facility] TRTGKOCCZR1995-44-02 08:25:000.1[facility] NhyrsevGTBYBOLZPB4250-41-02 08:25:000.3 [facility] DdnyoafFYLNTTSZWC6522-38-17 08:25:0012.3[facility] HermannHEMATOLOGY 2017-10-31 08:25:0017.5[facility] ZyashjfGQDMVCWOSX6909-07-89 08:25:0081.0[facility] JyobgdxWGERJSJEIP5786-99-14 08:25:00* Test Item Value Reference Range Interpretation Comments MCH (test code = MCH) 30.8 pg 27.0-31.0 [facility] OcmgxiiFAGFGXXPJF1681-71-24 08:25:0036.9[facility] HermannHEMATOLOGY 2017-10-31 08:25:0088.7[facility] TrqztbjRCHKWRXXAT6108-09-27 08:25:0034.8[facility] IxdqetoKQGELOLPFY1311-28-89 08:25:0012.3[facility] SvysmkkCGDAJDKURF8932-49-24 08:25:63370Uvpocnlk EfcobgrHETXUWGZZR3173-72-44 08:25:0010.0[facility] BHKICJYONG9587-18-25 08:25:004.16[facility] ClaesccONIVUQVKAA6943-71-55 08:25:00 12.8[facility] HvcajqqMBXWPHXIJZ6980-06-48 08:25:0021.6[facility] HermannURINE AND GIKFF8199-37-66 04:37:56Clear (10/30/17 10:37 PM)[facility]ann[facility] AND STOOL 2017-10-31 04:37:567.5[facility]annURINE AND SCDZQ6965-31-80 04:37:561.008 [facility] AND HPNWW0569-26-43 04:37:56Negative (10/30/17 10:37 PM) [facility] TEOMJ4836-77-22 04:37:56Negative (10/30/17 10:37 PM) [facility] GVTQF3127-78-71 04:37:562[facility]annUR[facility] AND PQXFH7299-10-12 04:37:561[facility]UR[facility] AND MUTHB9087-70-95 04:37:56 Negative (10/30/17 10:37 PM)[facility] AND RNTHD6322-12-86 04:37:56 Negative *NA*(10/30/17 10:37 PM)[facility] AND XIPEQ6937-15-66 04:37:563[facility]annUR[facility] AND IQEKI5230-10-37 04:37:56Yellow *NA*(10/30/17 10:37 PM)[facility] HermannBODY CVNOJB4772-31-90 02:12:0050[facility]annBODY QEORFO3511-94-07 02:12:0061[facility]annB[facility] FYGDAS2919-18-61 02:12:000 [facility] IITZBW0912-21-16 02:12:000[facility]annB[facility] FLUIDS 2017-10-31 02:12:00* Test Item Value Reference Range Interpretation Comments Tube Num CSF (test code = Tube Num CSF) 4 1 [facility]annB[facility] KUVGBM3592-66-10 02:12:00Colorless (10/30/17 8:12 PM) [facility] RPMAEV5946-94-41 02:12:00Colorless (10/30/17 8:12 PM) [facility] LDJIHD9084-77-55 02:12:00Clear (10/30/17 8:12 PM)[facility] HermannMOLECULAR QQUXYUKLLW9711-10-27 02:12:00Negative (10/30/17 8:12 PM) [facility]annMOLECULAR JMPWDATZNF4091-99-79 02:12:00Negative (10/30/17 8:12 PM)[facility] HermannVIRAL - PNRAGJDR4396-96-17 02:12:00Negative (10/30/17 8:12 PM)[facility] HermannCARDIAC XMERYXR8914-24-12 00:31:00<0.02[facility] CARDIAC AJMVLIV1692-56-72 00:31:78088Mzczneue HermannCHEM ZILPB2247-97-05 00:31:001.2[facility] HermannCHEM HHOPT5447-17-30 00:31:000.09[facility] ZTRAMDMCJT4742-98-70 00:31:001.14[facility] CipsudkVLNGCFHGBT7051-21-57 00:31:00* Test Item Value Reference Range Interpretation Comments PT (test code = PT) 14.6 s 12.0-14.7 [facility]WVZMGQBNR0569-39-38 00:31:00* Test Item Value Reference Range Interpretation Comments PTT (test code = PTT) 30.2 s 22.9-35.8 [facility]
--- OUTSIDE RECORDS SUMMARY | 2020-07-13 09:12 | XMS REPORT | Continuity of Care Document ---
Author Author King Dunlap [employer] XIN Whaley Organization [facility] [employer] Address Unknown Phone Unavailable Care Team Providers Care Rn Sane Name Role Phone [facility] Information Collison Unavailable Un available Problems Problem Status Onset Date Classification Date Reported Comments Source ABNORMAL EKG, LEUKOCYTOSIS Act juan manuel 10/30/2017 [facility] MENIGITIS Active 10/30/2017 [facility] POST ACCIDENT SCREENS Active 01/26/2016 [facility] Abnormal electrocardiogram [ECG] [EKG] 11/05/2017 [facility] Bacterial ear infection (disorder) Resolved Problem [facility] Abnormal ECG (finding) Active Problem 11/05/2017 [facility] Influenza with pharyngitis (disorder) Active Problem [facility] ABNORMAL ELECTROCARDIOGRAM [ECG] [EKG] Active [facility] ELEVATED WHITE BLOOD CELL COUNT, UNSPECI Active [facility] Medications Medication Details Route Status Patient Instructions Ordering Provider Order Date Source cefdinir 300 MG Oral Capsule [Omnicef] 300 mg = 1 cap, PO, Q12H, X 5 day, # 10 cap, 0 Refill(s), Pharmacy: [facility]/pharmacy #[id number] Active 11/02/2017 [facility] Azithromycin Notes: (Same As: Zithromax IV) No Longer Active 10/31/2017 [facility] Docusate Notes: (Same as: Cola ce) (Do Not Crush) No Longer Active 10/31/2017 [facility] Rocephin Notes: (Same As: Roce phin). Use with 100 mL NS and infuse over 30 min MEDICATION WASTE Product Size: 2000 mg Product Wasted: ___ mg No Longer Active 10/31/2017 [facility] Saline Flush 0.9% Notes: Same as: BD Posiflush Sterile No Longer Active 10/31/2017 [facility] NS + KCL 20mEq/L 1000ml (Premix) 1,000 mL Notes: PREMIX IV - Do Not Alter WASTE: F/P - Sink; E - Municipal Trash Bin No Longer Active 10/31/2017 [facility] Morphine Notes: (Same as:MORPh ine Sulfate) No Longer Active 10/31/2017 [facility] Acetaminophen Notes: Do not ex ceed 4 gm/day. (Same as: Tylenol) No Longer Active 10/31/2017 [facility] Ondansetron Notes: (Same as: Todd york) MEDICATION WASTE Product Size: 4 mg Product Wasted: ___ mg No Longer Active 10/31/2017 [facility] Ibuprofen Notes: (Same as: Mot rin) "Do Not Crush" Take with food. Inactive 10/31/2017 [facility] Acetaminophen 975 mg, Route: P O, Drug form: TAB, ONCE, Dosing Weight 103.182, kg, Start date: 10/30/17 17:29:00 JOURNALISM INSTRU[employer], Stop date: 10/30/17 17:29:00 [employer]RNALISM INSTRUCTOR Inactive 10/30/2017 [facility] Calcium Chloride 0.0014 MEQ/ML / Potassi um Chloride 0.004 MEQ/ML / Sodium Chloride 0.103 MEQ/ML / Sodium Lactate 0.028 MEQ/ML Injectable Solution 3,000 mL, 2000 ml/hr, Infuse Over: 1.5 h r, Route: IV, 3,000, Drug form: INJ, ONCE, Priority: STAT, Dosing Weight 103.182 kg, Start date: 10/30/17 17:29:00 JOURNALISM INSTRUCTOR, Stop date: 10/30/17 17:29:00 JOURNALISM INSTRUCTOR Inactive 10/30/2017 [facility] Saline Flush 0.9% Notes: Same as: BD Posiflush Sterile No Longer Active 10/30/2017 [facility] Promethazine HCl and Codeine Phosphate oral syrup 5 ml, PO, Q4H, PRN for cough, X 10 day, # 180 mL, 0 Refill(s) Active 10/23/2017 [facility] Oseltamivir 75 MG Oral Capsule [Tamiflu] 75 mg, PO, Q12H, X 5 day, # 10 cap, 0 Refill(s), Pharmacy: [facility]/pharmacy #[id number] Active 10/23/2017 [facility] Promethazine DM oral syrup 5 m L, PO, Q6H, PRN for cough, X 6 day, # 120 mL, 0 Refill(s) Active 10/19/2017 [facility] amoxicillin 875 mg oral tablet 875 mg = 1 tab, PO, BID, X 10 day, # 20 tab, 0 Refill(s) Active 10/19/2017 [facility] Fluoxetine 20 MG Oral Capsule [Prozac] 20 mg = 1 cap, PO, Daily, # 30 cap, 0 Refill(s) Active 10/18/2017 [facility] lisdexamfetamine dimesylate 50 MG Oral C apsule [Vyvanse] 50 mg = 1 cap, PO, QAM, # 30 cap, 0 Refill(s) Active 10/18/2017 [facility] Allergies, Adverse Reactions, Alerts No Known Medication Allergies Immunizations No Data Provided for This Section Results Order Name Results Value Reference Range Date Interpretation Comments Source CHEM PANEL eGFR 114 11/02/2017 Result Comment: The eGFR is calculated using the CKD-EPI formula. In most young, healthy individuals the eGFR will be >90 mL/min/1.73m2. The eGFR declines with age. An eGFR of 60-89 may be normal in some populations, particularly the elderly, for whom the CKD-EPI formula has not been extensively validated. Use of the eGFR is not recommended in the following populations:

Individuals with unstable creatinine concentrations, including patients and those with serious co-morbid conditions.

Patients with extremes in muscle mass or diet.

The data above are obtained from the National Kidney Disease Education Program (NKDEP) which additionally recommends that when the eGFR is used in patients with extremes of body mass index for purposes of drug dosing, the eGFR should be multiplied by the estimated BMI. [facility] CHEM PANEL Creatinine Lvl 0.74 0.50 - 1.40 11/02/2017 [facility] CHEM PANEL Sodium Lvl 140 135 - 145 11/02/2017 [facility] BUN 14 7 - 22 [facility] Glucose Lvl 96 70 - 99 [facility]/02[facility] Alk Phos 98 39 - 136 11/02[facility] AST 20 0 - 37 11/02/2017 [facility] CHEM PANEL ALT 86 0 - 65 11/02/2017 [facility] CHEM PANEL A/G Ratio 0.7 0.7 - 1.6 11/02/2017 [facility] CHEM PANEL Globulin 4.3 2.7 - 4.2 11/02/2017 [facility] CHEM PANEL Albumin Lvl 2.9 3.5 - 5.0 11/02/2017 [facility] CHEM PANEL Total Protein 7.2 6.4 - 8.4 11/02/2017 [facility] CHEM PANEL B/C Ratio 19 6 - 25 11/02/2017 [facility] CHEM PANEL Calcium Lvl 8.9 8.5 - 10.5 11/02/2017 [facility] CHEM PANEL Chloride Lvl 108 95 - 109 11/02/2017 [facility] CHEM PANEL AGAP 12.2 10.0 - 20.0 11/02/2017 [facility] CHEM PANEL CO2 24 24 - 32 11/02/2017 [facility] CHEM PANEL Potassium Lvl 4.2 3.5 - 5.1 11/02/2017 [facility] CHEM PANEL Bili Total 0.5 0.2 - 1.3 11/02/2017 [facility] HEMATOLOGY Eosinophils # 0.1 0.0 - 0.5 11/02/2017 [facility] HEMATOLOGY Monocytes # 1.0 0.0 - 0.8 11/02/2017 [facility] HEMATOLOGY Lymphocytes # 1.9 1.0 - 5.5 11/02/2017 [facility] HEMATOLOGY Lymphocytes 27.5 20.0 - 40.0 11/02/2017 [facility] HEMATOLOGY Segs 56.5 45.0 - 75.0 11/02/2017 [facility] HEMATOLOGY Segs-Bands # 3.9 1.5 - 8.1 11/02/2017 [facility] HEMATOLOGY Basophils 0.5 0.0 - 1.0 11/02/2017 [facility] HEMATOLOGY Eosinophils 1.6 0.0 - 4.0 11/02/2017 [facility] HEMATOLOGY Monocytes 13.9 2.0 - 12.0 11/02/2017 [facility] HEMATOLOGY Platelet 218 133 - 450 11/02/2017 [facility] HEMATOLOGY MPV 10.1 7.4 - 10.4 11/02/2017 [facility] HEMATOLOGY MCHC 34.9 32.0 - 36.0 11/02/2017 [facility] HEMATOLOGY RDW 12.7 11.5 - 14.5 11/02/2017 [facility] HEMATOLOGY RBC 4.39 4.70 - 6.10 11/02/2017 [facility] HEMATOLOGY Hgb 13.6 14.0 - 18.0 11/02/2017 [facility] HEMATOLOGY MCV 88.3 80.0 - 94.0 11/02/2017 [facility] HEMATOLOGY MCH 30.9 27.0 - 31.0 11/02/2017 [facility] HEMATOLOGY Hct 38.8 42.0 - 54.0 11/02/2017 [facility] HEMATOLOGY WBC 6.9 3.7 - 10.4 11/02/2017 [facility] CHEM PANEL eGFR 111 11/01/2017 Result Comment: The eGFR is calculated using the CKD-EPI formula. In most young, healthy individuals the eGFR will be >90 mL/min/1.73m2. The eGFR declines with age. An eGFR of 60-89 may be normal in some populations, particularly the elderly, for whom the CKD-EPI formula has not been extensively validated. Use of the eGFR is not recommended in the following populations:

Individuals with unstable creatinine concentrations, including patients and those with serious co-morbid conditions.

Patients with extremes in muscle mass or diet.

The data above are obtained from the National Kidney Disease Education Program (NKDEP) which additionally recommends that when the eGFR is used in patients with extremes of body mass index for purposes of drug dosing, the eGFR should be multiplied by the estimated BMI. [facility] CHEM PANEL Total Protein 6.6 6.4 - 8.4 11/01/2017 [facility] CHEM PANEL AST 37 0 - 37 11/01/2017 [facility] CHEM PANEL Albumin Lvl 2.6 3.5 - 5.0 11/01/2017 [facility] CHEM PANEL ALT 106 0 - 65 11/01/2017 [facility] CHEM PANEL Calcium Lvl 8.2 8.5 - 10.5 11/01/2017 [facility] CHEM PANEL CO2 23 24 - 32 11/01/2017 [facility] CHEM PANEL Bili Total 1.4 0.2 - 1.3 11/01/2017 [facility] CHEM PANEL Alk Phos 99 39 - 136 11/01/2017 [facility] CHEM PANEL Potassium Lvl 3.9 3.5 - 5.1 11/01/2017 [facility] CHEM PANEL Chloride Lvl 109 95 - 109 11/01/2017 [facility] CHEM PANEL Sodium Lvl 142 135 - 145 11/01/2017 [facility] CHEM PANEL Creatinine Lvl 0.80 0.50 - 1.40 11/01/2017 [facility] CHEM PANEL BUN 12 7 - 22 11/01/2017 [facility] CHEM PANEL Glucose Lvl 105 70 - 99 11/01/2017 [facility] CHEM PANEL Globulin 4.0 2.7 - 4.2 11/01/2017 [facility] CHEM PANEL A/G Ratio 0.6 0.7 - 1.6 11/01/2017 [facility] CHEM PANEL B/C Ratio 15 6 - 25 11/01/2017 [facility] CHEM PANEL AGAP 13.9 10.0 - 20.0 11/01/2017 [facility] CHEM PANEL Procalcitonin Lvl 0.25 0.00 - 0.10 11/01/2017 [facility] HEMATOLOGY Monocytes # 1.6 0.0 - 0.8 11/01/2017 [facility] HEMATOLOGY Lymphocytes # 2.1 1.0 - 5.5 11/01/2017 [facility] HEMATOLOGY Segs-Bands # 8.3 1.5 - 8.1 11/01/2017 [facility] HEMATOLOGY Basophils 0.4 0.0 - 1.0 11/01/2017 [facility] HEMATOLOGY Basophils # 0.1 0.0 - 0.2 11/01/2017 [facility] HEMATOLOGY Lymphocytes 17.2 20.0 - 40.0 11/01/2017 [facility] HEMATOLOGY Eosinophils 0.3 0.0 - 4.0 11/01/2017 [facility] HEMATOLOGY Monocytes 13.0 2.0 - 12.0 11/01/2017 [facility] HEMATOLOGY Segs 69.1 45.0 - 75.0 11/01/2017 [facility] HEMATOLOGY RBC 3.97 4.70 - 6.10 11/01/2017 [facility] HEMATOLOGY WBC 12.1 3.7 - 10.4 11/01/2017 [facility] HEMATOLOGY MCV 88.4 80.0 - 94.0 11/01/2017 [facility] HEMATOLOGY MCH 30.9 27.0 - 31.0 11/01/2017 [facility] HEMATOLOGY Hgb 12.3 14.0 - 18.0 11/01/2017 [facility] HEMATOLOGY RDW 12.4 11.5 - 14.5 11/01/2017 [facility] HEMATOLOGY Hct 35.1 42.0 - 54.0 11/01/2017 [facility] HEMATOLOGY MCHC 35.0 32.0 - 36.0 11/01/2017 [facility] HEMATOLOGY MPV 10.5 7.4 - 10.4 11/01/2017 [facility] HEMATOLOGY Platelet 189 133 - 450 11/01/2017 [facility] IMMUNOLOGY Hep C Ab Negat juan manuel *NA* (11/01/17 4:56 AM) 11/01/2017 [facility] IMMUNOLOGY Hep B Core IgM Negat juan manuel *NA* (11/01/17 4:56 AM) Negative 11/01/2017 [facility] IMMUNOLOGY Hep A IgM Negat juan manuel *NA* (11/01/17 4:56 AM) Negative 11/01/2017 [facility] IMMUNOLOGY Hep Bs Ag Negat juan manuel *NA* (11/01/17 4:56 AM) Negative 11/01/2017 [facility] IMMUNOLOGY HIV Ag/Ab 4th Gen Negat juan manuel *NA* (11/01/17 4:56 AM) Negative 11/01/2017 [facility] Troponin-I <0.02 0.00 - 0.40 10/31/2017 [facility] Total CK 128 12 - 191 10/31/2017 [facility] CK MB Index 1.0 0.0 - 2.5 10/31/2017 [facility] C[facility]YM[facility] CK MB 1.3 0.5 - 3.6 10/31/2017 [facility] CARDIAC ENZYM[facility] CK MB Index 0.8 0.0 - 2.5 10/31/2017 [facility] CARDIAC ENZYMES CK MB 1.2 0.5 - 3.6 10/31/2017 [facility] EN[facility]YM[facility] Troponin-I <0.02 0.00 - 0.40 10/31/2017 [facility] CARDIAC ENZYMES Total CK 149 12 - 191 10/31/2017 [facility] CHEM PANEL Magnesium Lvl 1.8 1.8 - 2.4 10/31/2017 [facility] CHEM PANEL eGFR 106 10/31/2017 Result Comment: The eGFR is calculated using the CKD-EPI formula. In most young, healthy individuals the eGFR will be >90 mL/min/1.73m2. The eGFR declines with age. An eGFR of 60-89 may be normal in some populations, particularly the elderly, for whom the CKD-EPI formula has not been extensively validated. Use of the eGFR is not recommended in the following populations:

Individuals with unstable creatinine concentrations, including patients and those with serious co-morbid conditions.

Patients with extremes in muscle mass or diet.

The data above are obtained from the National Kidney Disease Education Program (NKDEP) which additionally recommends that when the eGFR is used in patients with extremes of body mass index for purposes of drug dosing, the eGFR should be multiplied by the estimated BMI. [facility] CHEM PANEL AST 61 0 - 37 10/31/2017 [facility] CHEM PANEL Alk Phos 102 39 - 136 10/31/2017 [facility] CHEM PANEL Bili Total 1.3 0.2 - 1.3 10/31/2017 [facility] CHEM PANEL Total Protein 6.8 6.4 - 8.4 10/31/2017 [facility] CHEM PANEL Albumin Lvl 3.2 3.5 - 5.0 10/31/2017 [facility] CHEM PANEL ALT 106 0 - 65 10/31/2017 [facility] CHEM PANEL CO2 24 24 - 32 10/31/2017 [facility] CHEM PANEL Calcium Lvl 8.8 8.5 - 10.5 10/31/2017 [facility] CHEM PANEL Creatinine Lvl 0.89 0.50 - 1.40 10/31/2017 [facility] CHEM PANEL Sodium Lvl 140 135 - 145 10/31/2017 [facility] CHEM PANEL Chloride Lvl 105 95 - 109 10/31/2017 [facility] CHEM PANEL Potassium Lvl 3.6 3.5 - 5.1 10/31/2017 [facility] CHEM PANEL Glucose Lvl 103 70 - 99 10/31/2017 [facility] CHEM PANEL BUN 13 7 - 22 10/31/2017 [facility] CHEM PANEL AGAP 14.6 10.0 - 20.0 10/31/2017 [facility] CHEM PANEL B/C Ratio 15 6 - 25 10/31/2017 [facility] CHEM PANEL Globulin 3.6 2.7 - 4.2 10/31/2017 [facility] CHEM PANEL A/G Ratio 0.9 0.7 - 1.6 10/31/2017 [facility] HEMATOLOGY Monocytes # 2.7 0.0 - 0.8 10/31/2017 [facility] HEMATOLOGY Lymphocytes # 1.4 1.0 - 5.5 10/31/2017 [facility] HEMATOLOGY Lymphocytes 6.4 20.0 - 40.0 10/31/2017 [facility] HEMATOLOGY Basophils # 0.1 0.0 - 0.2 10/31/2017 [facility] HEMATOLOGY Basophils 0.3 0.0 - 1.0 10/31/2017 [facility] HEMATOLOGY Monocytes 12.3 2.0 - 12.0 10/31/2017 [facility] HEMATOLOGY Segs-Bands # 17.5 1.5 - 8.1 10/31/2017 [facility] HEMATOLOGY Segs 81.0 45.0 - 75.0 10/31/2017 [facility] HEMATOLOGY MCH 30.8 27.0 - 31.0 10/31/2017 [facility] HEMATOLOGY Hct 36.9 42.0 - 54.0 10/31/2017 [facility] HEMATOLOGY MCV 88.7 80.0 - 94.0 10/31/2017 [facility] HEMATOLOGY MCHC 34.8 32.0 - 36.0 10/31/2017 [facility] HEMATOLOGY RDW 12.3 11.5 - 14.5 10/31/2017 [facility] HEMATOLOGY Platelet 193 133 - 450 10/31/2017 [facility] HEMATOLOGY MPV 10.0 7.4 - 10.4 10/31/2017 [facility] HEMATOLOGY RBC 4.16 4.70 - 6.10 10/31/2017 [facility] HEMATOLOGY Hgb 12.8 14.0 - 18.0 10/31/2017 [facility] HEMATOLOGY WBC 21.6 3.7 - 10.4 10/31/2017 [facility] URINE AND STOOL UA Urobilinogen <=1.0 mg/dL 0.1 - 1.0 10/31/2017 [facility] URINE AND STOOL UA Turbidity Clear (10/30/17 10:37 PM) Clear 10/31/2017 [facility] URINE AND STOOL UA pH 7.5 5.0 - 8.0 10/31/2017 [facility] URINE AND STOOL UA Spec Grav 1.008 <=1.030 10/31/2017 [facility] URINE AND STOOL UA Sq Epi None Seen 10/31/2017 [facility] URINE AND STOOL UA Nitrite Negative (10/30/17 10:37 PM) Negative 10/31/2017 [facility] URINE AND STOOL UA Leuk Est Negative (10/30/17 10:37 PM) Negative 10/31/2017 [facility] URINE AND STOOL UA RBC 2 0 - 2 10/31/2017 [facility] URINE AND STOOL UA WBC 1 0 - 5 10/31/2017 [facility] URINE AND STOOL UA Ketones Negative mg/dL Negative mg/dL 10/31/2017 [facility] URINE AND STOOL UA Glucose Negative mg/dL Negative mg/dL 10/31/2017 [facility] URINE AND STOOL UA Blood Negative (10/30/17 10:37 PM) Negative 10/31/2017 [facility] URINE AND STOOL UA Bili Negative *NA* (10/30/17 10:37 PM) Negative 10/31/2017 [facility] URINE AND STOOL UA Protein Negative mg/dL Negative mg/dL 10/31/2017 [facility] URINE AND STOOL UA Hyal Cast 3 0 - 2 10/31/2017 [facility] URINE AND STOOL UA Mucus Few /LPF None Seen /LPF 10/31/2017 [facility] URINE AND STOOL UA Color Yellow *NA* (10/30/17 10:37 PM) Yellow 10/31/2017 [facility] BODY FLUIDS Protein CSF 50 15 - 45 10/31/2017 [facility] BODY FLUIDS Glucose CSF 61 45 - 80 10/31/2017 [facility] BODY FLUIDS RBC CSF 0 0 - 03 10/31/2017 [facility] BODY FLUIDS WBC CSF 0 0 - 53 10/31/2017 [facility] BODY FLUIDS Tube Num CSF 4 10/31/2017 [facility] BODY FLUIDS Supernat CSF [place] rless (10/30/17 8:12 PM) Colorless 10/31/2017 [facility] BODY FLUIDS Color CSF [place] rless (10/30/17 8:12 PM) Colorless 10/31/2017 [facility] BODY FLUIDS Clarity CSF Nuris r (10/30/17 8:12 PM) Clear 10/31/2017 [facility] MOLECULAR DIAGNOSTIC HSV 2 by PCR Negative (10/30/17 8:12 PM) Negative 10/31/2017 [facility] MOLECULAR DIAGNOSTIC HSV 1 by PCR Negative (10/30/17 8:12 PM) Negative 10/31/2017 [facility] MOLECULAR DIAGNOSTIC Source HSV Cerebral Spinal Fluid 10/31/2017 Result Comment: This sample was NON DETECTED or BELOW THE LOWER LIMITS OF DETECTION for HSV 1/2 DNA by real-time PCR using hybridization probe and melting curve analysis. [facility] VIRAL - SEROLOGY Enterovirus PCR CSF Negative (10/30/17 8:12 PM) Negative 10/31/2017 [facility] CARDIAC ENZYMES Troponin-I <0.02 0.00 - 0.40 10/31/2017 [facility] CARDIAC ENZYMES Total CK 154 12 - 191 10/31/2017 [facility] CHEM PANEL Lactic Acid Lvl 1.2 0.5 - 2.2 10/31/2017 [facility] CHEM PANEL Procalcitonin Lvl 0.09 0.00 - 0.10 10/31/2017 [facility] HEMATOLOGY INR 1.14 0.85 - 1.17 10/31/2017 [facility] HEMATOLOGY PT 14.6 12.0 - 14.7 10/31/2017 [facility] HEMATOLOGY PTT 30.2 22.9 - 35.8 10/31/2017 [facility] Pathology Reports No Data Provided for This Section Diagnostic Reports Report Value Date Source Chest wo contrast CT Patient N urbano: XIN SANDY : 1975; Age: 42 years y/o Male Study: Chest wo contrast CT 10/31/2017 11:27 AM 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 Coronal and sagittal reconstructions were obtained. Dose: DLP = 449 mGy-cm FINDINGS: LUNG PARENCHYMA AND PLEURA: Right middle and left lower lobe shows dependent consolidation with air bronchograms. There are no pleural effusions. There is no pneumothorax. AIRWAY: The central airway is normal. . MEDIASTINUM: No significant mediastinal lymphadenopathy. Mediastinal lymph nodes show up to 8 mm short axis diameter in the precarinal region. HEART: There is no evidence of RV strain. The cardiac chambers are otherwise unremarkable. There is no pericardial effusion. VASCULAR STRUCTURES: The pulmonary arteries and great vessels are unremarkable. The thoracic aorta is within normal limits.. The superior vena cava is unremarkable. OSSEOUS STRUCTURES: There are no significant osseous abnormalities seen. VISUALIZED UPPER ABDOMEN: The visualized upper abdomen shows diffuse decreased hepatic parenchymal attenuation relative to the spleen. ESOPHAGUS: No gross abnormalities. IMPRESSION: Right middle and left lower lobe dependent opacities with air bronchograms. In the appropriate clinical context, pneumonia should be considered. Findings should be followed until resolution to exclude underlying malignancy. Hepatic steatosis SL: VICKI 10/31/2017 [facility] Brain wo contrast CT Patient N urbano: XIN SANDY : 1975; Age: 42 years Male MR: [id number] Study: Brain wo contrast CT 10/30/2017 6:36 PM JOURNALISM INSTRUCTOR Clinical Indication: Headache. CT Radiation Dose DLP 1107 mGy-cm COMPARISON: None TECHNIQUE: CT images were obtained from the foramen magnum to the vertex without the use of intravenous contrast on a multidetector CT. Coronal and sagittal reconstructions were obtained. FINDINGS: BRAIN PARENCHYMA: There are normal kay-white interfaces, sulci and gyri. There is no mass effect or midline shift. There is no extra-axial fluid collection, intraventricular or intraparenchymal hemorrhage. The sella and pineal regions are normal. The skull base, cerebellum and brainstem are normal. VENTRICLES: The ventricles are normal in size and configuration. The basilar cisterns are normal. ORBITS, MASTOIDS AND PARANASAL SINUSES: The visualized orbits are normal. Right maxillary sinus polyp or mucous retention cyst. The mastoid air cells are clear. SKULL: There are no osseous abnormalities. If there is further concern for intracranial pathology or acute stroke, MRI of the brain may be performed for complete assessment. IMPRESSION: Normal noncontrast head CT. No mass, hemorrhage or subacute stroke. SL: CHARANJIT 10/30/2017 [facility] Chest 1view DX Study: Frontal chest x-ray History: Possible meningitis Comments: The trachea is midline. The cardiomediastinal silhouette is normal in size. No pneumonia. No pleural effusions or pneumothorax. Impression: No acute cardiopulmonary disease. 10/30/2017 [facility] Consultation Notes No Data Provided for This Section Discharge Summaries No Data Provided for This Section History and Physicals No Data Provided for This Section Vital Signs Vital Sign Value Date Comments Source Systolic (mm Hg) 125 11/02/2017 [facility] Diastolic (mm Hg) 81 11/02/2017 [facility] Respitory Rate 18 11/02/2017 [facility] Temperature Oral (F) 98.5 F 11/02/2017 [facility] Heart Rate 74 11/02/2017 [facility] Heart Rate 66 11/02/2017 [facility] Temperature Oral (F) 97.8 F 11/02/2017 [facility] Systolic (mm Hg) 124 11/02/2017 [facility] Diastolic (mm Hg) 85 11/02/2017 [facility] Respitory Rate 18 11/02/2017 [facility] Systolic (mm Hg) 113 11/02/2017 [facility] Diastolic (mm Hg) 77 11/02/2017 [facility] Respitory Rate 18 11/02/2017 [facility] Temperature Oral (F) 98.2 F 11/02/2017 [facility] Heart Rate 70 11/02/2017 [facility] BMI Calculated 29.21 10/31/2017 [facility] Weight 103.182 10/31/2017 [facility] Height 187.96 cm 10/31/2017 [facility] Weight 103.182 10/30/2017 [facility] BMI Calculated 30.85 10/30/2017 [facility] Height 182.88 cm 10/30/2017 [facility] Heart Rate 126 10/30/2017 [facility] Systolic (mm Hg) 126 10/30/2017 [facility] Diastolic (mm Hg) 81 10/30/2017 [facility] Temperature Oral (F) 99.9 F 10/30/2017 [facility] BMI Calculated 29.9 10/23/2017 [facility] Height 182.88 cm 10/23/2017 [facility] Weight 100 10/23/2017 [facility] Systolic (mm Hg) 132 10/23/2017 [facility] Diastolic (mm Hg) 90 10/23/2017 [facility] Heart Rate 107 10/23/2017 [facility] Respitory Rate 16 10/23/2017 [facility] Temperature Oral (F) 98.9 F 10/19/2017 [facility] Heart Rate 123 10/19/2017 [facility] Systolic (mm Hg) 148 10/19/2017 [facility] Diastolic (mm Hg) 77 10/19/2017 [facility] Encounters Location Location Details Encounter Type Encounter Number Reason For Visit Attending Provider ADM Date DC Date Status Source Outpatient [id number] LUIS A SCAREBECA 10/18/2017 [facility] [place] [facility] Outpatient [id number] Luis A Scarebeca 10/18/2017 10/19/2017 [facility] Outpatient [id number] [facility] 10/19/2017 [facility] [place] [facility] Out[facility] [id number] [facility] 10[facility]19/2017 10/20/2017 [facility] [facility] Outpatient [id number] [facility] 10/23/2017 [facility] [place] [facility] [id number] [facility] 10/23/2017 10/24/2017 [facility] Outpatient [id number] LUIS A [facility] 10/30/2017 Active [facility] [place] [facility] [id number] Luis A [facility] 10/30/2017 10/31/2017 Medical [facility] Inpatient [id number] Jarad Almendarez 10/30/2017 11/02/2017 [facility] Procedures Procedure Code Date Perfomer Comments Source Cervical spinal fusion [id number] [facility] Assessment and Plan Assessment and Plan Date Source Extracted from:Title: Clinical Document Author: Carol Shah MD Date: 11/04/17 Admission Date: 10/31/2017 Discharge Date: 11/02/2070 Discharge diagnoses: Gram-negative bacterial pneumonia Influenza infection Severe headache secondary to above Abnormal EKG Leukocytosis Discharge medications: see med reconciliation sheet Follow Up With James Sandy DO, Call for appointment, within: 2 Weeks, reason: Primary Care Physician follow up post hospitalization Jose Luis Garnett MD, Call for appointment, within: 2 Weeks, reason: Follow Up On Treatment Francisco Nunez MD, Call for appointment, within: 2 Weeks, reason: Follow Up On Treatment Home Diet: Diet Adult Regular Please notify your physician if any of the following occur: Bleeding, Fever, Nausea, Pain, Shortness of breath, Signs of infection, Swelling Consulting Physicians: Festus John MD Office: Service: Cardiology Jose Luis Garnett MD Office: Service: Medicine, Infectious Disease Francisco Nunez MD Office: Service: Cardiology, Diagnostic Radiology Nagi Alcantara MD Office: Service: Medicine No qualifying data available Hospital course: Patient is a 42-year-old gentleman with recent diagnosis of influenza comes to the hospital secondary to severe headache photophobia and high-grade fevers. LP was done and meningitis was ruled out. Patient was found to have pneumonia on CT of the chest. He responded well to antibiotic therapy. He was discharged home after cleared by ID. Discharge medications please review med reconciliation Exam Heart: S1-S2 heard regular rate and rhythm Lungs: Good air entry bilaterally no wheezing rhonchi Abdomen: Soft bowel sounds are positive Extremities: No edema Discharge time spent 35 minutes Extracted from:Title: Clinical Document Author: Jose Luis Garnett MD Date: 11/02/17 ANTIBOTICS: Current; Azithromycin, 10/31 Ceftriaxone, 10/31 SUBJECTIVE: No new complaints. Still febrile. Report of any new events. OBJECTIVE: Vital Signs (last 24 hrs) Last Charted Temp Oral 98.5 DegF (NOV 02:43) Heart Rate Peripheral 74 bpm (NOV 02:43) Resp Rate 18 BRMIN (NOV 02:43) SBP 125 mmHg (NOV 02 11:43) DBP 81 mmHg (NOV 02:43) SpO2 97 % (NOV 02:43) CHEST: Good air entry, no rales or wheezes bilaterally. CARIDIOVASCULAR: Quite percordium, no murmur or gallop. ADOMEN: Soft, none tender, active bowel sounds. : No CVA tenderness bilaterally. MUSCULOSKELELTAL: No cyanosis, clubbing or joint swelling bilaterally. NEURO: Alert and oriented. DATA: Labs Most Recent Results Previous Results Previous Results Previous Results WBC 6.9 (NOV 02) H 12.1 (NOV 01) H 21.6 (OCT 31) H 20.0 (OCT 30) Hgb L 13.6 (NOV 02) L 12.3 (NOV 01) L 12.8 (OCT 31) L 13.4 (OCT 30) Hct L 38.8 (NOV 02) L 35.1 (NOV 01) L 36.9 (OCT 31) L 38.8 (OCT 30) Plt 218 (NOV 02) 189 (NOV 01) 193 (OCT 31) 213 (OCT 30) Na 140 (NOV 02) 142 (NOV 01) 140 (OCT 31) 136 (OCT 30) K 4.2 (NOV 02) 3.9 (NOV 01) 3.6 (OCT 31) 3.7 (OCT 30) CO2 24 (NOV 02) L 23 (NOV 01) 24 (OCT 31) L 23 (OCT 30) Cl 108 (NOV 02) 109 (NOV 01) 105 (OCT 31) 101 (OCT 30) Cr 0.74 (NOV 02) 0.80 (NOV 01) 0.89 (OCT 31) 0.91 (OCT 30) BUN 14 (NOV 02) 12 (NOV 01) 13 (OCT 31) 12 (OCT 30) Glucose Random 96 (NOV 02) H 105 (NOV 01) H 103 (OCT 31) H 106 (OCT 30) Mg 1.8 (OCT 31) -- -- -- Ca 8.9 (NOV 02) L 8.2 (NOV 01) 8.8 (OCT 31) 9.0 (OCT 30) PT 14.6 (OCT 30) -- -- -- INR 1.14 (OCT 30) -- -- -- PTT 30.2 (OCT 30) -- -- -- Troponin <0.02 (OCT 31) <0.02 (OCT 31) <0.02 (OCT 30) -- CK MB 1.3 (OCT 31) 1.2 (OCT 31) -- -- Total CK 128 (OCT 31) 149 (OCT 31) 154 (OCT 30) [facility], -- ALT/AST: 11/18/60. Serology for acute viral hepatitis: Negative. HIV serology: Negative.. Pro calcitonin: 0.09>0.25 Urinalysis: Unremarkable. Cerebral spinal fluid, white cells: Zero. Blood culture: Pending. Cerebrospinal fluid culture: Pending. Chest x-ray: Showed no acute changes. CT scan of the chest: Right middle and left lower lobe opacities with air bronchograms. ASSESSMENT: A 42-year-old male with medical history as stated above, is admitted with: 1. Pneumonia; multifocal, bilateral, cl inically improving. 2. Abnormal liver enzymes, improving. RECOMENDATIONS: Discontinue ceftriaxone/azithromycin. Okay to discharge on oral antibiotics. 11/02/2017 [facility] Plan of Care No Data Provided for This Section Social History Social History Date Source Social History TypeResponse Substance Abuse Use: None. Alcohol Never Smoking Status Never smoker; Exposure to Tobacco Smoke None; Cigarette Smoking Last 365 Days No; Reg Smoking Cessation Counseling No 10/31/2017 [facility] Group Social History TypeResponse Substance Abuse Use: None. Alcohol Never Smoking Status Never smoker; Exposure to Tobacco Smoke None; Cigarette Smoking Last 365 Days No; Reg Smoking Cessation Counseling No 10/31/2017 [facility] Family History No Data Provided for This Section Advance Directives No Data Provided for This Section Functional Status No Data Provided for This Section
[2020-07-13] MEDS: HYDROCODONE/APAP 5MG-325MG TAB PO PRN ×2 (09:16→23:02)
[2020-07-13] MEDS ORDERED: HYDROCODONE/APAP 5MG-325MG TAB ONE (09:22)
[2020-07-13 09:45] VITALS: BP 125/90
[2020-07-13 10:00] VITALS: BP 125/90
--- NOTE | 2020-07-13 10:56 | Operative Report ---
DATE OF PROCEDURE: 07/13/2020 SURGEON: Mandeep Hassan MD PREOPERATIVE DIAGNOSIS: Thyroglossal duct cyst. POSTOPERATIVE DIAGNOSIS: Thyroglossal duct cyst. PROCEDURE: Excision of thyroglossal duct cyst. SIGNIFICANT FINDINGS: Thyroglossal duct cyst. PROCESS OWNER: Mallory Heart MD. ANESTHESIA: General endotracheal tube anesthesia. SPECIMENS REMOVED: Thyroglossal duct cyst. ESTIMATED BLOOD LOSS: 5 mL. COMPLICATIONS: None. INDICATIONS: The patient is a 45-year-old white male, found incidentally on MRI of the cervical spine to have an anterior midline upper neck mass. CT neck performed on June 04, 2020, revealed a 2.2 x 1.6 x 3.2 cm mass in the anterior upper midline neck inferior to the hyoid bone extending inferiorly to the superior edge of the thyroid cartilage. The patient denies any throat symptoms. He is a nonsmoker. On examination, there is an approximately 3 cm upper midline anterior neck mass consistent with thyroglossal duct cyst. He is scheduled for excision of thyroglossal duct cyst under general anesthesia. The risks and complications of the procedure were thoroughly discussed with the patient including infection, bleeding, scarring, failure to improve, need for additional operations, possibility of malignancy and need for further treatment, recurrence of mass, poor external cosmetic appearance of the incision site, damage to the pharyngeal mucosa resulting in leakage of intraluminal contents into the neck, damage to vocal cords resulting in voice changes; need for blood transfusions, damage to surrounding nerves, blood vessels, and muscles. He fully understands and gives consent. DESCRIPTION OF PROCEDURE: The patient was taken to the operating room and placed supine on the operating table, where general anesthesia was achieved through orotracheal intubation. Eyes were taped. Shoulder roll was placed. Ancef and Decadron were administered. Injection with 2.5 mL of 1% lidocaine with 1:100,000 epinephrine was injected along the natural skin crease which was just inferior to the cyst. The neck was then prepped and draped in the usual sterile fashion. An approximately 5 cm incision was then made along the natural skin crease just inferior to the mass. The incision was made past the platysmal layer. Skin flaps were then elevated superiorly and inferiorly. The mass was then identified. This was then dissected atraumatically, taking care to stay on the capsule of the cyst. This was dissected until it was left attached to the midportion of the hyoid bone on the inferior aspect of the hyoid bone. The hyoid bone was then skeletonized in its midportion and was then removed by making bone cuts just off midline to remove the central portion of the hyoid bone. The central portion of the hyoid bone with its attached cyst was then removed and sent to pathology. The cystic mass measured 3 cm x 2 cm. There was no evidence of any interruption of pharyngeal mucosa. There was no evidence of bleeding on Valsalva maneuver. Thorough irrigation was then performed. A MADINA drain was then inserted through a separate stab incision and this drain was secured with 2-0 silk. The wound was then repaired in three layers: the deepest layer was reapproximation of the fascia with interrupted 4-0 Monocryl, followed by a reapproximation of the platysmal layer with interrupted 4-0 Monocryl, followed by interrupted 4-0 Monocryl in a subcuticular fashion, followed by Dermabond. The patient was awakened in the operating room, extubated, and taken to the recovery room in good condition. Mandeep Hassan MD JKY/MODL /[id number]
[2020-07-13] MEDS ORDERED: ONDANSETRON HCL INJ 2MG/ML 2ML 2 MG/ML VIAL IV PRN (11:30)
[2020-07-13 11:45] VITALS: BP 130/95
[2020-07-13] MEDS ORDERED: D5.45%NS/KCL 20MEQ 1,000 ML IV ONE (11:45)
[2020-07-13] MEDS: CEFAZOLIN SOD 1 GM/NS 50ML 50 ML IV SCH ×2 (15:15→22:36)
[2020-07-13 15:30] VITALS: BP 120/78
[2020-07-13] MEDS ORDERED: SEVOFLURANE INHAL SOLN 250 ML PEN BTL ONE (17:52)
[2020-07-13] MEDS ORDERED: CEFAZOLIN SOD 1 GM VIAL ONE (17:52)
[2020-07-13] MEDS ORDERED: PROPOFOL IV EMULSION 10 MG/ML 20 ML VIAL ONE (17:52)
[2020-07-13] MEDS ORDERED: DEXAMETHASONE SOD PHOS INJ 4 MG/ML VIAL ONE (17:52)
[2020-07-13] MEDS ORDERED: NEOSTIGMINE 1 MG/ML 10ML VIAL ONE (17:52)
[2020-07-13] MEDS ORDERED: GLYCOPYRROLATE INJ 0.2 MG/ML VIAL ONE (17:52)
[2020-07-13] MEDS ORDERED: ONDANSETRON HCL INJ 2MG/ML 2ML 2 MG/ML VIAL ONE (17:52)
[2020-07-13] MEDS ORDERED: LIDOCAINE HCL 2% LOCAL INJ 5 ML SDV VIAL INJ ONE (17:52)
[2020-07-13] MEDS ORDERED: ROCURONIUM BROMIDE 10 MG/ML 5ML VIAL IV ONE (17:52)
[2020-07-13 20:00] VITALS: BP 136/90
[2020-07-14] VITALS: BP 132/82
[2020-07-14 04:00] VITALS: BP 128/92
[2020-07-14] MEDS: CEFAZOLIN SOD 1 GM/NS 50ML 50 ML IV SCH (06:01)
[2020-07-14 08:00] VITALS: BP 133/79
== END 2020-07-14 08:51 | disposition home or self-care (01) ==
LOC: OR 05:30 → PACU V 08:51 → MED/SURG 09:33
PROVIDERS: ADMIT Otolaryngology; ATTEND Otolaryngology
DX: Q89.2 Congenital malformations of other endocrine glands (principal); Z11.59 Encounter for screening for other viral diseases; Z01.812 Encounter for preprocedural laboratory examination
CPT/HCPCS: 60280; 88304; 88311; 93005; G0378 ×2; J0690 ×3; J1100; J2001; J2405; J2704; J2710; U0002; 88305